=== PATIENT | female | born 1965 | race Caucasian/White ===

== ENCOUNTER 2016-12-21 22:56 | Emergency (ER) | payer OTHER ==
[~2016-12-21] VITALS: Ht 177.8 cm; Wt 102.3 kg
[~2016-12-21 22:56] MED LIST: BECL8.7A5 INHALATION; BLAC540C4 PO; CLOB59LO3 TP; LEVO112T4 PO; LORA10CA PO; MONT10TA23 PO; OMEP20CA11 PO; PRAM0.5T10 PO; PRAM0.754 PO; TRIA60LO3 TOP; TROS20TA4 PO
[2016-12-21 23:00] VITALS: BP 151/82; PULSE 89; RESP 18; O2SAT 96
[2016-12-21 23:30] LABS: Mean Corpuscular Hemoglobin 26.5 pg (27.0-35.0); Mean Corpuscular Volume 81.1 fL (81-100)
[2016-12-21 23:31] LABS: BASOPHILS % (AUTO) 0.4 % (0-3); EOSINOPHILS % (AUTO) 3.6 % (0-5); MONOCYTES % (AUTO) 6.4 % (4-12); NEUTROPHILS % (AUTO) 65.3 % (40-74); Platelet Count 407 bil/L (150-400)
[2016-12-21 23:53] LABS: Magnesium 1.7 mg/dL (1.6-2.6)
--- NOTE | 2016-12-22 00:16 | ED.REPORT ---
HPI-Abd Pain F 40 and Over Date of Service Dec 22, 2016 ED Provider: Reynold Rubio MD Pt is a 51 y.o. female with a hx of GERD and ischemic colitis who presents to the ED c/o intermittent severe abdominal pain described as cramping onset 4 days ago. Pt states that 4 days ago she had an episode of abdominal cramping with associated diarrhea, this episode lasted 6 hours. She experienced another episode today of abdominal cramping and diarrhea onset 1500. Upon examination pt states that her sx have not yet resolved. She reports associated chills. Denies hematochezia and fever. She also reports recent abx use. Nursing Notes Stated Complaint: STOMACH PAIN,DIARRHEA Chief Complaint: Female Abdominal Pain Nursing Notes Reviewed: Yes Allergies: Coded Allergies: Sulfa (Sulfonamide Antibiotics) (Verified Allergy, Severe, rash, 12/21/16) ciprofloxacin (Verified Allergy, Severe, SHAKINESS, 12/21/16) ibuprofen (Verified Adverse Reaction, Severe, depression, 12/21/16) Uncoded Allergies: LORAZAPAM (Allergy, Mild, 12/21/16) Scheduled Black Cohosh (Black Cohosh) 540 Mg Capsule 540 MG PO BID Levothyroxine (Levothyroxine) 112 Mcg Tablet 112 MCG PO DAILY Loratadine (Claritin) 10 Mg Capsule 10 MG PO HS Montelukast (Montelukast) 10 Mg Tablet 10 MG PO HS Omeprazole (Omeprazole) 20 Mg Capsule.dr 20 MG PO DAILY Pramipexole Di-HCl (Pramipexole Dihydrochloride) 0.75 Mg Tablet 0.75 MG PO HS Pramipexole Dihydrochloride (Pramipexole Dihydrochloride) 0.5 Mg Tablet 0.5 MG PO DAILY Triamcinolone Acetonide (Triamcinolone Acetonide) 60 Ml Lotion 1 APPLIC TOP BID Trospium Chloride (Trospium Chloride) 20 Mg Tablet 20 MG PO BID Scheduled PRN Beclomethasone Dipropionate (Qvar) 8.7 Gm Aer.w.adap 2 PUFFS INHALATION BID PRN PRN For Shortness of Breath Ondansetron ODT (Ondansetron ODT) 8 Mg Tab.rapdis 8 MG PO QID PRN PRN For Nausea Miscellaneous Medications Clobetasol Propionate (Clobetasol Propionate) 59 Ml Lotion 59 ML TP General Time Seen by MD: 00:15 Chief Complaint Abdominal pain Hx Obtained From: Patient Arrived By: Wheelchair Sudden in Onset?: Yes Onset Occurred: 4 days ago Location: : Diffuse Quality: Cramping, Painful Severity: Current: Severe Past Medical History 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, multiple work-ups Gastric ulcer, 20 years ago Restless Leg Syndrome GERD H/o Ischemic colitis Reports: Asthma Reports: Depression, Thyroid disease Past Surgical History right rotator cuff surgery Smoking History Never Smoker Social History Alcohol Use: Denies alcohol use Drug Use: Denies drug use Other Social History: Good social support, Lives with children, Local resident 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 Physical Exam Vital Signs Vital Signs (First) Date Time Temp Pulse Resp B/P Pulse Ox O2 Delivery O2 Flow Rate FiO2 12/21/16 23:00 37.2 89 18 151/82 96 Room Air Initial VS: Reviewed Head / Eyes: Atraumatic, Normocephalic Skin: Warm, Dry Psychiatric: Mood/affect normal, Behavior normal, Normal thought content General/Constitutional: Awake, Alert, No acute distress, Well appearing, Well developed, Well nourished, Not toxic appearing Distress / Hydration: Positive: Dehydration mild Respiratory / Chest: Atraumatic, Breath sounds NL, Breath sounds = bilat, No respiratory distress, No rales, No rhonchi, No wheezing, No retractions, No stridor Cardiovascular: Heart rate NL, Regular rhythm, Heart sounds NL, No gallop, No murmurs, No rubs, Peripheral circulation NL Abdomen: Atraumatic, Soft, Non-tender, No guarding, No rebound, No distention Bowel Sounds / Distention: Positive: Bowel sounds hyperactive Benign to palpation Back: Atraumatic Neurologic: Oriented X3 Dysphonic speech pattern, baseline Interpretation & Diagnostics Lab Results Interpretation Result Diagram: 12/21/16232412/21/162324 Test 12/21/16 23:25 12/22/16 02:55 White Blood Count 10.2th/mm3 (3.8-10.1) Red Blood Count 4.49mil/mm3 (3.90-5.20) Hemoglobin 11.9g/dL (12.0-15.6) Hematocrit 36.4% (35.0-46.0) Mean Corpuscular Volume 81.1fL (81-100) Mean Corpuscular Hemoglobin 26.5pg (27.0-35.0) Mean Corpuscular Hemoglobin Concent 32.7% (32.0-37.0) Red Cell Distribution Width 14.8% (12.3-15.4) Platelet Count 407bil/L (150-400) Neutrophils (%) (Auto) 65.3% (40-74) Lymphocytes (%) (Auto) 24.0% (14-46) Monocytes (%) (Auto) 6.4% (4-12) Eosinophils (%) (Auto) 3.6% (0-5) Basophils (%) (Auto) 0.4% (0-3) Sodium Level 139mEq/L (134-144) Potassium Level 3.9mEq/L (3.5-5.2) Chloride Level 102mEq/L (97-108) Carbon Dioxide Level 24mmol/L (18-29) Blood Urea Nitrogen 15mg/dL (6-24) Creatinine 0.60mg/dL (0.57-1.00) Estimat Glomerular Filtration Rate 151mL/min (>59) Glucose Level 169mg/dL (60-99) Calcium Level 9.4mg/dL (8.5-10.1) Magnesium Level 1.7mg/dL (1.6-2.6) Total Bilirubin 0.2mg/dL (0.0-1.2) Aspartate Amino Transf (AST/SGOT) 20U/L (0-50) Alanine Aminotransferase (ALT/SGPT) 31U/L (0-32) Alkaline Phosphatase 107U/L (25-150) Total Protein 6.8g/dL (6.4-8.4) Albumin 4.0g/dL (3.4-5.0) Lipase 22U/L (13-60) Urine Color Yellow (YELLOW) Urine Appearance Clear (CLEAR,HAZY) Urine pH 6.5 (5.0-8.0) Urine Specific [place] 1.020 (1.003-1.035) Urine Protein Negativemg/dL (NEG,TRACE) Urine Glucose (UA) Negativemg/dL (NEGATIVE) Urine Ketones Negativemg/dL (NEGATIVE) Urine Occult Blood Negative (NEGATIVE) Urine Nitrite Negative (NEGATIVE) Urine Bilirubin Negative (NEGATIVE) Urine Urobilinogen Normalmg/dL (NORMAL) Urine Leukocyte Esterase Negative (NEGATIVE) Urine RBC 0-2/hpf (0-2) Urine WBC 0-5/hpf (0-5) Urine Epithelial Cells Occasional/hpf (NONE-MOD) Urine Crystals None seen (NONE SEEN) Urine Bacteria None/hpf (NONE-FEW) Urine Hyaline Casts Rare/lpf (NONE) Urine Granular Casts None seen (NONE SEEN) Urine Waxy Casts None seen (NONE SEEN) Urine Red Blood Cell Casts None seen (NONE SEEN) Urine White Blood Cell Casts None seen (NONE SEEN) Urine Mucus Present (None Seen) Urine Trichomonas None seen (NONE SEEN) Urine Yeast None (NONE SEEN) Urinalysis Comment Transitional epi Urine Culture Reflexed Not indicated Re-Eval/Medical Decision Med Decision/Clinical Course 51-year-old with history of ischemic colitis and uncharacterized neuromuscular disorder, presents with recurrent diarrhea over a 4-5 day course. His been no bleeding. She has crampy discomfort associated that resolves in between bouts. She has been unable to produce any diarrhea since arrival. She is minimal pain at this point. She is feeling somewhat thirsty. Exam is otherwise unremarkable. Laboratory set is reassuring. Kit provided for obtaining stool to take to her doctor's office, as she is unable to produce here. PCR panel ordered but no sample available. She has had no bleeding, but was exposed to antibiotics for fairly prolonged course recently, and C. difficile was a concern. Fluids, progressive diet, Pepto-Bismol for diarrhea control, and ondansetron for nausea control. Source of Hx: Old records Re-Evaluation/Progress #1: Time of Eval: 04:25 Re-Evaluation/Progress Note: Pt rechecked. Pt is feeling improved. Pt has still been unable to provide a stool sample. Re-Evaluation/Progress #2: Time of Eval: 05:45 Re-Evaluation/Progress Note: Pt rechecked. Discussed plan for discharge, pt understands and agrees with plan. Counseled Regarding: Diagnosis, Lab results, Need for follow-up, When/why to return to ED Discharge & Departure Shift Change Sign-Out Response to Therapy: Improved Primary Impression: Diarrhea Additional Impression: Infectious colitis Disposition: Home Discharge Condition All VS Reviewed: Yes Condition: Stable Additional Instructions: Pepto-Bismol maximal label directions. Zofran if needed for nausea. Follow-up with your doctor in the office. Return if you see significant bleeding, or other new symptoms of concern. Drink clear fluids and advance slowly as tolerated. Try and maintain her hydration to compensate for your fluid losses. Referrals: Juanis Cervantes (PCP) Michelle Attestation Portions of this note were transcribed by Lexy Valdez. I, Dr. Rubio personally performed the history, physical exam and medical decision-making; I reviewed and confirmed the accuracy of the information in the transcribed note. Signed by: Michelle Aceves, 12/22/16 and 0546. copies to: Juanis Cervantes Christopher W MD Dec 22, 2016 00:16 LEXY VALDEZ Dec 22, 2016 01:57
[2016-12-22] MEDS ORDERED: 0.9% Sodium Chloride 1,000 ML IV SCH (02:25)
[2016-12-22 03:24] VITALS: BP 128/78; PULSE 76; RESP 16; O2SAT 99
[2016-12-22 04:20] LABS: APPEARANCE,URINE CLEAR (CLEAR,HAZY); COLOR,URINE YELLOW (YELLOW); OCCULT BLOOD,URINE NEGATIVE (NEGATIVE); PH,URINE 6.5 (5.0-8.0)
[2016-12-22 04:21] LABS: UROBILINOGEN,URINE NORMAL (NORMAL)
[2016-12-22 05:40] VITALS: BP 132/79; PULSE 82; RESP 18; O2SAT 98
[2016-12-22] MEDS ORDERED: ONDA8TAB10 PO (05:40)
[2016-12-22 06:21] VITALS: BP 132/79; PULSE 82; RESP 18; O2SAT 98
== END 2016-12-22 06:22 | disposition home or self-care (01) ==
LOC: SED 22:56
DX: A09 Infectious gastroenteritis and colitis, unspecified (principal); J45.909 Unspecified asthma, uncomplicated; K21.9 Gastro-esophageal reflux disease without esophagitis; Z87.19 Personal history of other diseases of the digestive system; Z88.5 Allergy status to narcotic agent; Z88.2 Allergy status to sulfonamides; Z88.6 Allergy status to analgesic agent; Z88.1 Allergy status to other antibiotic agents
CPT/HCPCS: 36415; 80053; 81000; 83690; 83735; 85025; 96360; 96361; 99284; J7030

== ENCOUNTER 2017-02-20 18:09 | Emergency (ER) | payer OTHER ==
[~2017-02-20 18:09] MED LIST changes: +ONDA8TAB10 PO
[2017-02-20 18:12] VITALS: BP 151/79; PULSE 86; RESP 16; O2SAT 100
--- NOTE | 2017-02-20 18:34 | ED.REPORT ---
HPI-Chest Pain 40 and Over Date of Service Feb 20, 2017 ED Provider: Sukh Durant MD Pt is a 51 y/o female w/ a hx of foreign accent syndrome, GERD, presenting to the ED c/o waxing and waning dull upper-right chest pain/pressure that fels like "muscle spasm" with radiation to the right jaw onset 3 hours ago. Pt c/o associated nausea. She denies rash, fever, chills, cough, pleuritic pain. She has a hx of GERD and it has been well controlled recently. Exertional exacerbation is unknown due to her baseline neurologic deficits. Of note she reports that she has a history of problems with muscle spasms of the extremities and that this feels similar in nature to her muscle spasms. She has no history of cardiovascular disease. She did not initially want to come to the ED but a home health nurse convinced her to be evaluated. Nursing Notes Stated Complaint: CHEST PAIN Chief Complaint: Chest Pain Nursing Notes Reviewed: Yes Allergies: Coded Allergies: Sulfa (Sulfonamide Antibiotics) (Verified Allergy, Severe, rash, 12/21/16) ciprofloxacin (Verified Allergy, Severe, SHAKINESS, 12/21/16) ibuprofen (Verified Adverse Reaction, Severe, depression, 12/21/16) Uncoded Allergies: LORAZAPAM (Allergy, Mild, 12/21/16) Scheduled Black Cohosh (Black Cohosh) 540 Mg Capsule 540 MG PO BID Levothyroxine (Levothyroxine) 112 Mcg Tablet 112 MCG PO DAILY Loratadine (Claritin) 10 Mg Capsule 10 MG PO HS Montelukast (Montelukast) 10 Mg Tablet 10 MG PO HS Omeprazole (Omeprazole) 20 Mg Capsule.dr 20 MG PO DAILY Pramipexole Di-HCl (Pramipexole Dihydrochloride) 0.75 Mg Tablet 0.75 MG PO HS Pramipexole Dihydrochloride (Pramipexole Dihydrochloride) 0.5 Mg Tablet 0.5 MG PO DAILY Triamcinolone Acetonide (Triamcinolone Acetonide) 60 Ml Lotion 1 APPLIC TOP BID Trospium Chloride (Trospium Chloride) 20 Mg Tablet 20 MG PO BID Scheduled PRN Beclomethasone Dipropionate (Qvar) 8.7 Gm Aer.w.adap 2 PUFFS INHALATION BID PRN PRN For Shortness of Breath Ondansetron ODT (Ondansetron ODT) 8 Mg Tab.rapdis 8 MG PO QID PRN PRN For Nausea Miscellaneous Medications Clobetasol Propionate (Clobetasol Propionate) 59 Ml Lotion 59 ML TP General Time Seen by MD: 18:34 Chief Complaint Chest pain Hx Obtained From: Patient Arrived By: Walk-in Sudden in Onset?: No Onset Occurred: 1 - 4 hours ago Symptom Duration: Waxes and wanes Location: : Chest right Quality: Dull Radiation: : Jaw Severity: Current: Mild Severity: Maximum: Moderate Similar Sx Previous: No Past Medical History Past Medical History Foreign Accent Syndrome - unclear etiology, multiple work-ups Pineal cyst - benign Gastric ulcer, 20 years ago Restless Leg Syndrome GERD H/o Ischemic colitis Reports: Asthma Reports: Depression, Thyroid disease Past Surgical History right rotator cuff surgery Smoking History Never Smoker Social History Alcohol Use: Denies alcohol use Drug Use: Denies drug use Other Social History: Good social support, Lives with children, Local resident 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 Physical Exam Initial Vital Signs Vital Signs (First) Date Time Temp Pulse Resp B/P Pulse Ox O2 Delivery O2 Flow Rate FiO2 02/20/17 18:12 36.4 86 16 151/79 100 Room Air Initial VS: Reviewed, Vital signs normal Head / Eyes: Atraumatic, Normocephalic, PERRL ENT: Mucous membranes moist, Conjunctiva normal, No scleral icterus Neck: Supple, Full range of motion Extremities: Vascular intact, Neuro intact, No swelling, No tenderness Skin: Warm, Dry, No cyanosis Neurologic: Alert, Oriented, Nonfocal Psychiatric: Mood/affect normal, Behavior normal, Normal thought content General/Constitutional: Awake, Alert, No acute distress, Well appearing, Cooperative, Not toxic appearing Respiratory / Chest: Atraumatic, Breath sounds NL, Breath sounds = bilat, No respiratory distress, No rales, No rhonchi, No wheezing, No retractions, No stridor, No chest tenderness, No chest wall deformity, No crepitus Cardiovascular: Heart rate NL, Regular rhythm, Heart sounds NL, No gallop, No murmurs, No rubs, Cap refill not delayed, Peripheral circulation NL Abdomen: Atraumatic, Soft, Non-tender, No guarding, No rebound, No distention, No palpable mass Interpretation & Diagnostics Lab Results Interpretation Result Diagram: 02/20/17191402/20/171914 Test 02/20/17 19:15 White Blood Count 7.7th/mm3 (3.8-10.1) Red Blood Count 4.81mil/mm3 (3.90-5.20) Hemoglobin 12.4g/dL (12.0-15.6) Hematocrit 38.9% (35.0-46.0) Mean Corpuscular Volume 80.9fL (81-100) Mean Corpuscular Hemoglobin 25.8pg (27.0-35.0) Mean Corpuscular Hemoglobin Concent 31.9% (32.0-37.0) Red Cell Distribution Width 14.3% (12.3-15.4) Platelet Count 399bil/L (150-400) Neutrophils (%) (Auto) 54.9% (40-74) Lymphocytes (%) (Auto) 32.3% (14-46) Monocytes (%) (Auto) 6.5% (4-12) Eosinophils (%) (Auto) 5.0% (0-5) Basophils (%) (Auto) 1.0% (0-3) Sodium Level 141mEq/L (134-144) Potassium Level 4.1mEq/L (3.5-5.2) Chloride Level 102mEq/L (97-108) Carbon Dioxide Level 25mmol/L (18-29) Blood Urea Nitrogen 12mg/dL (6-24) Creatinine 0.52mg/dL (0.57-1.00) Estimat Glomerular Filtration Rate 178mL/min (>59) Glucose Level 94mg/dL (60-99) Calcium Level 9.9mg/dL (8.5-10.1) Magnesium Level 2.0mg/dL (1.6-2.6) Total Bilirubin 0.2mg/dL (0.0-1.2) Aspartate Amino Transf (AST/SGOT) 23U/L (0-50) Alanine Aminotransferase (ALT/SGPT) 29U/L (0-32) Alkaline Phosphatase 124U/L (25-150) Troponin T < 0.010ug/L (0.0-0.011) Total Protein 7.5g/dL (6.4-8.4) Albumin 4.4g/dL (3.4-5.0) Hold Banda Top Tube Received (Received) ECG Interpretation ECG Interpretation: Sinus rhythm rate 71 Baseline EKG quality poor No ST or T changes No prior EKG available Time: 18:36 Interpreted by: ED physician Normal ECG Interpretation: No acute ischemic changes X-Ray Chest Interpretation Chest Xray Interpretation: IMPRESSION: No acute process. Dictated by: Belia Jett M.D. on 02/20/2017 at 18:37 Approved by: Belia Jett M.D. on 02/20/2017 at 18:37 View: Portable, 1 view Interpretation / Wet Read by: Interpret - Radiologist Re-Eval/Medical Decision Med Decision/Clinical Course Pt is a 51 y/o female w/ a hx of foreign accent syndrome, GERD, presenting to the ED c/o waxing and waning dull upper-right chest pain/pressure that fels like "muscle spasm" with radiation to the right jaw onset 3 hours ago. Pt c/o associated nausea. She denies rash, fever, chills, cough, pleuritic pain. She has a hx of GERD and it has been well controlled recently. Exertional exacerbation is unknown due to her baseline neurologic deficits. Of note she reports that she has a history of problems with muscle spasms of the extremities and that this feels similar in nature to her muscle spasms. She has no history of cardiovascular disease. She did not initially want to come to the ED but a home health nurse convinced her to be evaluated. Here in the emergency department the patient is afebrile, hemodynamically stable and in no apparent distress. Examination as above. CXR: Obtained, reviewed and interpreted by myself shows no evidence of infiltrates, effusions or pneumothorax. Cardiac and mediastinal silhouette normal. No bony or soft tissue abnormalities. EKG was obtained and interpreted by myself as documented above. Labs notable as below: CBC: Unremarkable CMP: Unremarkable Troponin: negative At this time initial screening troponin and EKG are reassuring. I applied the heart score and my assessment of this patient's cardiac risk factors. She is low risk and I feel that she is appropriate for further outpatient follow-up with her primary care doctor. I suspicion that this presentation today is marketing development representative of acute coronary syndrome is relatively low. No physical exam evidence suggestive of DVT. The patient is without tachypnea, tachycardia or pleuritic chest pain. Patient is relatively low risk for pulmonary embolism and feel that PE workup is indicated. Nature pain not suggestive of aortic dissection and aortic knob is normal appearance. No evidence of pneumonia or pneumothorax. Patient's assessment is that her pain is related to muscle spasm and given her history I think that this is likely. I feel that she is appropriate for discharge home. Prior to discharge follow-up and return precautions were reviewed in detail with the patient who verbalized understanding and agreement with the plan. The patient was discharged in stable condition. Time of Eval: 20:20 Re-Evaluation/Progress Note: Pt rechecked. Informed pt of plan for treatment. Pt understands and agrees with plan for treatment. F/U instructions and RTER warnings given. All questions addressed. Counseled Regarding: Diagnosis, Lab results, Need for follow-up, When/why to return to ED Discharge & Departure Primary Impression: Chest pain Chest pain type: unspecified Qualified Code: R07.9 - Chest pain, unspecified Additional Impression: Muscle spasm Disposition: Home Discharge Condition All VS Reviewed: Yes Condition: Stable Patient Instructions: Chest Pain (ED) Additional Instructions: Thank you for seeking care at the emergency room. It is difficult for us to make definitive diagnoses in the ED but we believe that you are experiencing non-cardiac chest pain. Our primary goal today in the ED was to evaluate you for any life-threatening conditions. Your evaluation was reassuring. Your labs, EKG, and chest x-ray were normal. You should follow-up with your primary doctor in the next week. You should return to the ED immediately if you develop worsening or persistent chest pain especially if it increased with exertion, fevers, vomiting, cough, shortness of breath, profound sweating, lightheadedness, weakness or any other concerning signs or symptoms. Thank you for letting us partake in your care today. Referrals: Pamela Lugo MD (PCP) Scribe Attestation Portions of this note were transcribed by Adolfo Ruiz. I, Dr. Durant personally performed the history, physical exam and medical decision-making; I reviewed and confirmed the accuracy of the information in the transcribed note. Signed by Michelle Farnsworth, 02/20/17 - 1944 copies to: Pamela Lugo MD,Sukh Berry MD Feb 20, 2017 18:34 ADOLFO RUIZ Feb 20, 2017 18:36
--- NOTE | 2017-02-20 18:39 | DRSVH ---
PROCEDURE: X-RAY CHEST ONE VIEW, PORTABLE ([id number]) INDICATIONS: chest pain TECHNIQUE: One view of the chest was acquired. COMPARISON: None. FINDINGS: Surgical changes and devices: None. Lungs and pleura: No pleural effusions or pneumothorax. Lungs are clear. Mediastinum: Mediastinal contours appear normal. Heart size is normal. Bones and chest wall: No suspicious bony lesions. Overlying soft tissues appear unremarkable. IMPRESSION: No acute process. Dictated by: Belia Jett M.D. on 02/20/2017 at 18:37 Approved by: Belia Jett M.D. on 02/20/2017 at 18:37
[2017-02-20 19:31] LABS: MONOCYTES % (AUTO) 6.5 % (4-12); Mean Corpuscular Hemoglobin 25.8 pg (27.0-35.0); Mean Corpuscular Volume 80.9 fL (81-100); NEUTROPHILS % (AUTO) 54.9 % (40-74); Platelet Count 399 bil/L (150-400)
[2017-02-20 19:52] LABS: TROPONIN T < 0.010 ug/L (0.0-0.011)
[2017-02-20 20:32] VITALS: BP 132/70; PULSE 87; RESP 23; O2SAT 97
== END 2017-02-20 20:32 | disposition home or self-care (01) ==
LOC: SED 18:09
DX: R07.89 Other chest pain (principal); M62.838 Other muscle spasm; K21.9 Gastro-esophageal reflux disease without esophagitis; J45.909 Unspecified asthma, uncomplicated; Z88.1 Allergy status to other antibiotic agents; Z88.2 Allergy status to sulfonamides; Z88.8 Allergy status to other drugs, medicaments and biological substances

== ENCOUNTER 2017-05-07 15:50 | Emergency (ER) | payer OTHER ==
[~2017-05-07] VITALS: Ht 177.8 cm; Wt 95.0 kg
[2017-05-07 16:01] VITALS: BP 150/85; PULSE 83; RESP 16; O2SAT 99
--- NOTE | 2017-05-07 17:49 | ED.REPORT ---
HPI-Back Pain 40 and Over Date of Service May 07, 2017 ED Provider: Trini Bonner History of Present Illness: different spasm in back started Tuesday. increasing. tried ice heat no help. elsa at [facility] [place] [place] primary care. has multiple dx of chronic lyme, unusal movement disorder, fg toxicity cipro and levaquin as dx for neurological issues. Also quivery sensation in front. physical therapy since october. no different activity rohry is neuro from [facility] next appointment is end of may Nursing Notes Stated Complaint: BACK SPASMS Chief Complaint: Back Pain or Injury Nursing Notes Reviewed: Yes Allergies: Coded Allergies: Sulfa (Sulfonamide Antibiotics) (Verified Allergy, Severe, rash, 12/21/16) ciprofloxacin (Verified Allergy, Severe, SHAKINESS, 12/21/16) ibuprofen (Verified Adverse Reaction, Severe, depression, 12/21/16) Uncoded Allergies: LORAZAPAM (Allergy, Mild, 12/21/16) Scheduled Black Cohosh (Black Cohosh) 540 Mg Capsule 540 MG PO BID Levothyroxine (Levothyroxine) 112 Mcg Tablet 112 MCG PO DAILY Loratadine (Claritin) 10 Mg Capsule 10 MG PO HS Montelukast (Montelukast) 10 Mg Tablet 10 MG PO HS Omeprazole (Omeprazole) 20 Mg Capsule.dr 20 MG PO DAILY Pramipexole Di-HCl (Pramipexole Dihydrochloride) 0.75 Mg Tablet 0.75 MG PO HS Pramipexole Dihydrochloride (Pramipexole Dihydrochloride) 0.5 Mg Tablet 0.5 MG PO DAILY Triamcinolone Acetonide (Triamcinolone Acetonide) 60 Ml Lotion 1 APPLIC TOP BID Trospium Chloride (Trospium Chloride) 20 Mg Tablet 20 MG PO BID Scheduled PRN Beclomethasone Dipropionate (Qvar) 8.7 Gm Aer.w.adap 2 PUFFS INHALATION BID PRN PRN For Shortness of Breath Ondansetron ODT (Ondansetron ODT) 8 Mg Tab.rapdis 8 MG PO QID PRN PRN For Nausea Miscellaneous Medications Clobetasol Propionate (Clobetasol Propionate) 59 Ml Lotion 59 ML TP General Time Seen by MD: 17:44 Chief Complaint Other (right flank pain and spasms) Sudden in Onset?: No Past Medical History Past Medical History Foreign Accent Syndrome - unclear etiology, multiple work-ups Pineal cyst - benign Gastric ulcer, 20 years ago Restless Leg Syndrome GERD H/o Ischemic colitis Reports: Asthma Reports: Depression, Thyroid disease Past Surgical History right rotator cuff surgery Smoking History Never Smoker Social History Alcohol Use: Denies alcohol use Drug Use: Denies drug use Other Social History: Good social support, Lives with children, Local resident Occupation lives with son 05/07/2017 Ambulatory Status Independent Review of Systems Basic Review of Systems Eyes: Vision NL, No discharge ENT: Hearing NL, No pain, No nasal congestion, No pharyngeal pain Hematologic: No bleeding, No bruising Endocrine: No cold intolerance, No heat intolerance, No weight gain, No weight loss Skin: No bruising, No rash, No itch Allergy / Immune: No allergy Psychiatric: Normal thought content Physical Exam Initial Vital Signs Vital Signs (First) Date Time Temp Pulse Resp B/P Pulse Ox O2 Delivery O2 Flow Rate FiO2 05/07/17 16:01 36.8 83 16 150/85 99 Room Air Initial VS: Reviewed, Vital signs normal Head / Eyes: Atraumatic, Normocephalic, PERRL ENT: Mucous membranes moist, Conjunctiva normal, No scleral icterus Neck: Supple, Non-tender, Full range of motion Lymphatic: No lymphadenopathy Extremities: Vascular intact, Neuro intact, No swelling, No tenderness Skin: Warm, Dry, No cyanosis Psychiatric: Mood/affect normal, Behavior normal, Normal thought content General/Constitutional: Awake, Alert, No acute distress, Well appearing, Well developed, Well hydrated Respiratory / Chest: Atraumatic, Breath sounds NL, Breath sounds = bilat, No respiratory distress Cardiovascular: Heart rate NL, Regular rhythm, Heart sounds NL, No gallop Abdomen: Atraumatic, Soft, Non-tender patient with slow speech, at times speech flows normally. Also jerking locking movements of extremities. Interpretation & Diagnostics Lab Results Interpretation Test 05/07/17 17:30 Urine Color Yellow (YELLOW) Urine Appearance Clear (CLEAR,HAZY) Urine pH 5.5 (5.0-8.0) Urine Specific [place] 1.010 (1.003-1.035) Urine Protein Negativemg/dL (NEG,TRACE) Urine Glucose (UA) Negativemg/dL (NEGATIVE) Urine Ketones Negativemg/dL (NEGATIVE) Urine Occult Blood Negative (NEGATIVE) Urine Nitrite Negative (NEGATIVE) Urine Bilirubin Negative (NEGATIVE) Urine Urobilinogen Normalmg/dL (NORMAL) Urine Leukocyte Esterase Trace (NEGATIVE) Urine RBC 0-2/hpf (0-2) Urine WBC 0-5/hpf (0-5) Urine Epithelial Cells None/hpf (NONE-MOD) Urine Crystals None seen (NONE SEEN) Urine Bacteria None/hpf (NONE-FEW) Urine Hyaline Casts None/lpf (NONE) Urine Granular Casts None seen (NONE SEEN) Urine Waxy Casts None seen (NONE SEEN) Urine Red Blood Cell Casts None seen (NONE SEEN) Urine White Blood Cell Casts None seen (NONE SEEN) Urine Mucus None seen (None Seen) Urine Trichomonas None seen (NONE SEEN) Urine Yeast None (NONE SEEN) Urinalysis Comment None Urine Culture Reflexed Indicated Hold Urine Received (Received) Lab Results Interpretation: urine is being cultured, possible infection Re-Eval/Medical Decision Med Decision/Clinical Course 52 year old female presents for evualation of right flank pain and back spasms since Tuesday. Denies fevers. No sign of kidney stone or kidney infection. Will treat with macrobid. Discharge & Departure Impression: Primary Impression: Urinary tract infection Additional Impression: Muscle spasm Disposition: Home Patient Instructions: Urinary Tract Infection in Women (ED) Additional Instructions: The urine indicates a possible infection. You are being started on macrobid, which is an antibiotic that you have had before. You had a visteral which will help with the spasms. Please keep all your appointments as scheduled. You have a prescription for macrobid and visteral. If you found the visteral helpful, please continue. [place] in finding an explanation for your neurological disorder. Referrals: Johanne Mortensen MD (PCP) EDSupervising Provider for APC: Sukh Durant MD copies to: Johanne Mortensen MD, Sue ARNP May 07, 2017 17:48
[2017-05-07] MEDS ORDERED: hydrOXYzine Pamoate 25 mg Capsule PO ONE (18:10)
[2017-05-07 18:44] LABS: APPEARANCE,URINE CLEAR (CLEAR,HAZY); COLOR,URINE YELLOW (YELLOW); OCCULT BLOOD,URINE NEGATIVE (NEGATIVE); PH,URINE 5.5 (5.0-8.0); UROBILINOGEN,URINE NORMAL (NORMAL)
[2017-05-07] MEDS ORDERED: Nitrofurantoin Monohyd-Macrocryst 100 mg Capsule PO ONE (19:20)
[2017-05-07 20:00] VITALS: BP 136/91; PULSE 80; RESP 16; O2SAT 98
== END 2017-05-07 20:01 ==
LOC: SED 15:50
DX: N39.0 Urinary tract infection, site not specified (principal); M62.830 Muscle spasm of back; J45.909 Unspecified asthma, uncomplicated; E07.9 Disorder of thyroid, unspecified; K21.9 Gastro-esophageal reflux disease without esophagitis; Z88.2 Allergy status to sulfonamides; Z88.6 Allergy status to analgesic agent; Z88.1 Allergy status to other antibiotic agents; Z88.8 Allergy status to other drugs, medicaments and biological substances
CPT/HCPCS: 81000; 87077; 87086; 87088; 87186; 99284; Q0177